=== PATIENT | male | born 1990 | race Two or more races ===

== ENCOUNTER 2021-03-15 06:23 | Emergency (ER) | payer OTHER ==
[2021-03-15] MEDS ORDERED: Ondansetron 4 MG/2 ML SDV IVPUSH ONE (07:00)
[2021-03-15] MEDS ORDERED: Ketorolac 30 MG/ML SDV IVPUSH ONE (07:00)
[2021-03-15] MEDS ORDERED: Sodium Chloride 0.9% 500 ML IV ONE (07:01)
[2021-03-15] MEDS ORDERED: Sodium Chloride 0.9% 1,000 ML IV ONE (07:11)
--- NOTE | 2021-03-15 07:49 | EDM.PDOC ---
ED HPI GENERAL MEDICAL PROBLEM - General Chief Complaint: Abdominal Pain Stated Complaint: ABDOMINAL PAIN-LEFT SIDED Time Seen by Provider: 03/15/21 07:15 Source of Information: Reports: Patient History Limitations: Reports: No Limitations - History of Present Illness INITIAL COMMENTS - FREE TEXT/NARRATIVE: 30-year-old male who reports at approximately 6 PM yesterday he developed pain in his left lower quadrant for about 2-3 minutes. He reports the pain was quite severe and it was sharp and stabbing. It then seemed to go away completely and he was fine until approximately 3 AM when he was awakened from sleep with severe stabbing pain in his left lower quadrant. The pain was rated by him as an 8-9/10 but would increase to a 10/10 at its worst. He also had some dull aching in his left flank and back as well. There was no dysuria or hematuria. He had no fevers or chills. He had nausea with vomiting 1 when he arrived to the emergency department. He states he has had pain similar to this 2 times in his past and no diagnosis was made either time. He states he was in [place] when this occurred. Prior to this yesterday, he was eating and drinking normally and had no pro blems. There are no other associated signs or symptoms. There are no other modifying factors. It should be noted that lab tests were ordered and an IV was ordered with normal saline and Toradol and Zofran were to be given. A CT scan of his abdomen and pelvis was ordered as well. 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 Onset: Other (6 PM) Duration: Getting Worse, Intermittent Location: Reports: Abdomen (Left lower quadrant) Quality: Reports: Sharp, Stabbing Severity: Moderate (to severe) Improves with: Reports: None Worsens with: Reports: None Context: Reports: Other (As above.) Associated Symptoms: Reports: No Other Symptoms (Except as above.) Treatments CLINICAL ASSOC: Reports: Acetaminophen L lower abdomen Pain Score (Numeric/FACES): 8 - Related Data Allergies Allergy/AdvReac Type Severity Reaction Status Date / Time No Known Allergies Allergy Verified 03/15/21 06:46 Home Meds: Home Meds Hydrocodone/Acetaminophen [Hydrocodon-Acetaminophen 5-300] 1 - 2 tab PO Q6H PRN #12 tablet 03/15/21 [Rx] Ondansetron [Zofran ODT] 4 mg PO Q6H PRN #8 tab.dis 03/15/21 [Rx] Tamsulosin [Tamsulosin 24 Hr] 0.4 mg PO BEDTIME #7 cap.er 03/15/21 [Rx] Past Medical History - Past Health History Medical/Surgical History: Denies Medical/Surgical History - Infectious Disease History Infectious Disease History: Reports: Chicken Pox Social & Family History - Family History : Reports: Renal Calculus (In his mother) - Tobacco Use Tobacco Use Status *Q: Never Tobacco User - Caffeine Use Caffeine Use: Reports: Coffee - Alcohol Use Alcohol Use History: No - Recreational Drug Use Recreational Drug Use: No - Living Situation & Occupation Living situation: Reports: 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 Denies: Throat Pain Respiratory: Denies: Shortness of Breath, Cough Cardiovascular: Denies: Chest Pain, Lightheadedness GI/Abdominal: Reports: Abdominal Pain, Nausea, Vomiting : Reports: Flank Pain. Denies: Dysuria, Hematuria Musculoskeletal: Reports: Back Pain (Left mid back) Skin: Denies: Diaphoresis, Rash Neurological: Denies: Dizziness, Headache Hematologic/Lymphatic: Denies: Easy Bleeding, Easy Bruising ED EXAM, RENAL/ - Physical Exam Exam: See Below Exam Limited By: No Limitations General Appearance: Alert, WD/WN, Moderate Distress (Holding his left lower quadrant.) Eye Exam: Bilateral Eye: EOMI, Normal Inspection, PERRL Ears: Normal External Exam, Hearing Grossly Normal Nose: Normal Inspection, Normal Mucosa, No Blood Throat/Mouth: Normal Lips, Normal Voice, No Airway Compromise, Other (Dry mucous membranes) Head: Atraumatic, Normocephalic Neck: Normal Inspection, Supple, Non-Tender, Full Range of Motion Respiratory/Chest: No Respiratory Distress, Lungs Clear, Normal Breath Sounds, No Accessory Muscle Use, Chest Non-Tender Cardiovascular: Normal Peripheral Pulses, Regular Rate, Rhythm, No Edema GI/Abdominal: Normal Bowel Sounds, Soft, Non-Tender, No Mass Back Exam: Normal Inspection, Full Range of Motion. No: CVA Tenderness (R), CVA Tenderness (L) Extremities: Normal Inspection, Normal Range of Motion, Non-Tender, No Pedal Edema, Normal Capillary Refill Neurological: Alert, Oriented, CN II-XII Intact, Normal Cognition, No Motor/Sensory Deficits Psychiatric: Normal Affect Skin Exam: Warm, Dry, Intact, Normal Color, No Rash Course - Vital Signs Last Recorded V/S: Last Vital Signs Temp 36.5 C 03/15/21 06:30 Pulse 73 03/15/21 06:30 Resp 20 03/15/21 06:30 BP 142/62 H 03/15/21 06:30 Pulse Ox 96 03/15/21 06:30 - Orders/Labs/Meds Orders: Active Orders 24 hr Category Date Time Status Abdomen Pelvis wo Cont [CT] Stat Exams 03/15/21 07:00 Taken Labs: Laboratory Tests 03/15/21 03/15/21 03/15/21 Range/Units 06:38 06:45 06:45 WBC 13.5 H (3.2-10.1) x10-3/uL RBC 5.42 (3.90-5.90) x10(6)uL Hgb 16.0 (12.9-17.7) g/dL Hct 47.4 (38.3-50.1) % MCV 87.5 (80.8-98.7) fL MCH 29.5 (27.0-33.3) pg MCHC 33.7 (28.7-35.3) g/dL RDW 13.6 (12.4-15.0) % Plt Count 202 (117-477) x10(3)uL MPV 10.3 (6.7-11.0) fL Neut % (Auto) 79.5 H (40.3-71.8) % Lymph % (Auto) 14.4 L (15.8-45.3) % [place] % (Auto) 5.3 L (5.5-15.2) % Eos % (Auto) 0.4 (0.1-6.8) % Baso % (Auto) 0.4 (0.3-3.8) % Neut # (Auto) 10.7 H (1.7-6.9) x10-3/uL Lymph # (Auto) 1.9 (0.5-4.5) x10-3/uL [place] # (Auto) 0.7 (0.0-1.2) x10-3/uL Eos # (Auto) 0.1 (0.0-0.6) x10-3/uL Baso # (Auto) 0.1 (0.0-0.3) x10-3/uL Sodium 140 (135-145) mmol/L Potassium 4.3 (3.5-5.3) mmol/L Chloride 104 (100-110) mmol/L Carbon Dioxide 23 (21-32) mmol/L BUN 17 (7-18) mg/dL Creatinine 1.1 (0.70-1.30) mg/dL Est Cr Clr Drug Dosing TNP Estimated GFR (MDRD) > 60 (>60) BUN/Creatinine Ratio 15.5 (9-20) Glucose 130 H (80-116) mg/dL Calcium 8.7 (8.6-10.2) mg/dL Urine Color Yellow (YELLOW) Urine Appearance Slightly cloudy (CLEAR) Urine pH 5.0 (5.0-6.5) Ur Specific [place] 1.020 (1.010-1.025) Urine Protein Negative (NEGATIVE) mg/dL Urine Glucose (UA) Normal (NORMAL) mg/dL Urine Ketones Negative (NEGATIVE) mg/dL Urine Occult Blood Moderate H (NEGATIVE) Urine Nitrite Negative (NEGATIVE) Urine Bilirubin Negative (NEGATIVE) Urine Urobilinogen Normal (NEGATIVE) mg/dL Ur Leukocyte Esterase Negative (NEGATIVE) Urine RBC 5-10 H (0-5) Urine WBC 0-5 (0-5) Ur Squamous Epith Cells Moderate H (NS,R,O) Urine Bacteria Few H (NS) Urine Mucus Moderate H (NS) Meds: Medications Discontinued Medications Generic Name Dose Route Start Last Admin Trade Name Freq PRN Reason Stop Dose Admin Sodium Chloride 500 mls @ 999 mls/hr 03/15/21 07:01 03/15/21 07:21 Normal Saline IV 03/15/21 07:31 Not Given .BOLUS ONE Sodium Chloride 1,000 mls @ 999 mls/hr 03/15/21 07:11 03/15/21 06:50 Normal Saline IV 03/15/21 08:11 999 mls/hr .BOLUS ONE Administration Ketorolac Tromethamine 30 mg 03/15/21 07:00 03/15/21 07:11 Ketorolac 30 Mg/Ml Sdv IVPUSH 03/15/21 07:01 30 mg ONETIME ONE Administration Ondansetron HCl 8 mg 03/15/21 07:00 03/15/21 07:11 Ondansetron 4 Mg/2 Ml Sdv IVPUSH 03/15/21 07:01 8 mg ONETIME ONE Administration Tamsulosin HCl 0.4 mg 03/15/21 08:32 03/15/21 08:45 Tamsulosin 0.4 Mg Cap.Er PO 03/15/21 08:33 0.4 mg ONETIME ONE Administration - Radiology Interpretation Free Text/Narrative:: CT scan of the abdomen and pelvis without IV contrast showed a to 3 mm distal ureteral stone with moderate hydronephrosis on the left side. There is also evidence of fatty infiltration of the liver. This was per the [facility] radiologist. - Re-Assessments/Exams Free Text/Narrative Re-Assessment/Exam: 03/15/21 08:05: CT scan of his abdomen and pelvis showed left distal 2-3 mm ureteral stone with moderate hydronephrosis. The patient feels much improved now. He would rate his pain as a 0/10 at present. He states that he still has some soreness but not really any pain. No more nausea. Is white blood cell count was 13.5. The remainder of his blood tests were reassuringly normal except for a glucose of 130. The urinalysis had red cells but no evidence of infection. With the stone being 2-3 mm, this ureteral stone should pass on its own. I will give the patient a prescription for hydrocodone 5/325, Zofran 4 mg ODT and Flomax 0.4 mg. He needs to increase his fluid intake. No work until 03/17/2021. The patient and his are comfortable with plan for discharge. Precautions and reasons for return to the emergency department were discussed with the patient and his while the patient was in the emergency department and were detailed in the patient's discharge instructions. Departure - Departure Time of Disposition: 08:20 Disposition: Home, Self-Care 01 Condition: Good (Improved.) Clinical Impression: Left ureteral calculus, Acute unilateral obstructive uropathy - Discharge Information *PRESCRIPTION DRUG MONITORING PROGRAM REVIEWED*: Yes (No narcotic prescriptions over the past year in any surrounding state.) *COPY OF PRESCRIPTION DRUG MONITORING REPORT IN PATIENT [place]HEM[place]H: No Prescriptions: Tamsulosin [Tamsulosin 24 Hr] 0.4 mg PO BEDTIME #7 cap.er Hydrocodone/Acetaminophen [Hydrocodon-Acetaminophen 5-300] 1 - 2 tab PO Q6H PRN #12 tablet PRN Reason: Moderate to severe pain Ondansetron [Zofran ODT] 4 mg PO Q6H PRN #8 tab.dis PRN Reason: Nausea/Vomiting Referrals: PCP,None [Primary Care Provider] - Forms: ED Department Discharge, ED Return to Work/School Form Additional Instructions: You have a kidney stone on the left side. It is 2-3 mm in size and is at the very bottom of your ureter just at your bladder. This should pass on its own and not require any surgery. You really need to increase your fluid intake. You should rest. No work until 03/17/2021. You can take ibuprofen 600 mg by mouth every 6 hours as needed for pain. Other medications as prescribed (hydrocodone 5/325, Zofran 4 mg ODT, Flomax 0.4 mg). Only take the hydrocodone for moderate to severe pain and you cannot drive and take the hydrocodone. In fact, you should not drive or operate heavy machinery for 12 hours after you take a dose of the hydrocodone. In the future, you should really try to keep herself very well hydrated at all times. This will decrease the chance of you having kidney stones in the future. Back to the emergency department for marked increase in pain, fever, unrelenting vomiting or any other concerning signs or symptoms. Sepsis Event Note (ED) - Evaluation Sepsis Screening Result: No Definite Risk - Focused Exam Vital Signs: Vital Signs Temp Pulse Resp BP Pulse Ox 03/15/21 06:30 36.5 C 73 20 142/62 H 96
[2021-03-15] MEDS ORDERED: Tamsulosin 0.4 MG Cap.ER PO ONE (08:32)
== END 2021-03-15 08:55 | disposition home or self-care (01) ==
LOC: FB.ED 06:23
DX: N13.2 Hydronephrosis with renal and ureteral calculous obstruction (principal)
CPT/HCPCS: 36415; 74176; 80048; 81001; 85025; 96374; 96375; 99284; A9270; J1885; J2405; J7030